=== PATIENT | male | born 1980 | race Caucasian/White ===

== ENCOUNTER 2021-09-25 07:17 | Outpatient (REF) | payer OTHER, SELFPAY ==
[2021-09-25 08:23] LABS: Estimated Average Glucose 108 mg/dL; Hemoglobin A1c % 5.4 %
[2021-09-25 08:38] LABS: Alanine Aminotransferase 16 U/L (0-40); Albumin Level 4.5 g/dL (3.5-5.0); Alkaline Phosphatase 57 U/L (39-117); Anion Gap 12 (12-20); Aspartate Amino Transferase 15 U/L (5-37); Bilirubin Total 0.5 mg/dL (0.0-1.0); Blood Urea Nitrogen 13 mg/dL (9-16); Calcium 9.2 mg/dL (8.4-10.2); Carbon Dioxide 26 mmol/L (22-29); Chloride 103 mmol/L (96-108); Cholesterol 231 mg/dL; Estimated Glomerular Filt Rate > 60; Glucose Random 100 mg/dL (60-115); HDL Cholesterol 34 mg/dL; LDL Cholesterol Calculated 183 mg/dl; Potassium 4.3 mmol/L (3.3-5.1); Sodium 137 mmol/L (135-145); Total Protein 6.8 g/dL (6.5-8.0); Triglycerides 71 mg/dL
[2021-09-25 08:59] LABS: TSH reflex Free T4 0.65 uIU/mL (0.32-4.0); Vitamin D 25-OH Total 23.5 ng/mL (>30)
[2021-09-25 09:09] LABS: Folate 17.6 ng/mL (> or = 4.0); Vitamin B12 351 pg/mL (200-900)
== END 2021-09-25 07:18 | disposition home or self-care (01) ==
LOC: HO.LAB 07:17
PROVIDERS: PCP Internal Medicine; Visit Provider Physician Assistant
DX: R73.01 Impaired fasting glucose (principal); E78.2 Mixed hyperlipidemia; F41.1 Generalized anxiety disorder
CPT/HCPCS: 36415; 80053; 80061; 82306; 82607; 82746; 83036; 84443

== ENCOUNTER 2022-07-30 07:12 | Outpatient (REF) | payer OTHER, SELFPAY ==
[2022-07-30 07:27] LABS: MANUAL DIFF FLAG NO
[2022-07-30 07:59] LABS: Basophils Absolute Auto 0.1 X10*3/uL (0.0-0.2); Eosinophils Absolute Auto 0.2 X10*3/uL (0.0-0.4); Eosinophils Percent Auto 3.6 % (0-4); Hematocrit 40.2 % (42.0-52.0); Hemoglobin 13.8 g/dl (14.0-18.0); Imm Gran Abs Auto 0.01 X10*3/uL (0.00-0.03); Imm Gran Pct Auto 0.2 % (0.0-0.4); Lymphocytes Absolute Auto 1.7 X10*3/uL (1.2-4.9); Lymphocytes Percent Auto 34.5 % (20-40); Mean Corpuscular HGB Conc 34.3 g/dl (31.0-36.0); Mean Corpuscular Hemoglobin 30.1 pg (27.0-33.0); Mean Corpuscular Volume 87.6 fL (80.0-98.0); Mean Platelet Volume 8.8 fL (9.4-12.4); Monocytes Absolute Auto 0.3 X10*3/uL (0.1-1.2); Monocytes Percent Auto 6.5 % (2-11); Neutrophils Absolute Auto 2.6 x10*3/uL (2.0-8.3); Neutrophils Percent Auto 54.2 % (45-73); Platelet Count 248 X10*3/uL (160-400); Red Blood Count 4.59 X10*6/uL (4.60-5.80); Red Cell Distribution Width 12.4 % (11.0-16.0); White Blood Count 4.8 X10*3/uL (4.8-10.8)
[2022-07-30 08:44] LABS: Alanine Aminotransferase 17 U/L (0-40); Albumin Level 4.4 g/dL (3.5-5.0); Alkaline Phosphatase 52 U/L (39-117); Anion Gap 12 (12-20); Aspartate Amino Transferase 15 U/L (5-37); Bilirubin Total 0.7 mg/dL (0.0-1.0); Blood Urea Nitrogen 15 mg/dL (9-16); Carbon Dioxide 27 mmol/L (22-29); Chloride 102 mmol/L (96-108); Cholesterol 235 mg/dL; Estimated Glomerular Filt Rate > 60; Glucose Random 92 mg/dL (60-115); HDL Cholesterol 35 mg/dL; LDL Cholesterol Calculated 181 mg/dl; Potassium 4.3 mmol/L (3.3-5.1); Sodium 137 mmol/L (135-145); Total Protein 6.8 g/dL (6.5-8.0); Triglycerides 99 mg/dL
[2022-07-30 09:01] LABS: Prostate Specific Antigen 0.79 ng/mL (<0.05-4.0)
== END 2022-07-30 07:13 | disposition home or self-care (01) ==
LOC: HO.LAB 07:12
PROVIDERS: PCP Internal Medicine; Visit Provider Physician Assistant
DX: Z00.00 Encounter for general adult medical examination without abnormal findings (principal); Z12.5 Encounter for screening for malignant neoplasm of prostate
CPT/HCPCS: 36415; 80053; 80061; 84153; 85025

== ENCOUNTER 2024-07-27 08:25 | Outpatient (REF) | payer OTHER, SELFPAY ==
--- OUTSIDE RECORDS SUMMARY | 2024-07-27 08:29 | XMS_ITS | Data Portability ---
Author Organization [facility] Service Address [address] [place] [address] Assessment No assessment recorded. Plan of Treatment Reminders Order Date Submit Date Provider Last Modified By Organization Details Last Modified Time Details Appointments ANNUAL EXAM 2024 03:30P M DAPHNE GARNETT Not available Not available Not available Lab CMP, serum or plasma 2023 024 [facility], [address] [place] [address], [id number], 08/14/2023 16:03:58 lipid panel, blood 2023 024 [facility], [address] [place] [address], [id number], 08/14/2023 16:03:58 CBC w/ auto diff 2023 024 [facility], [address] [place] [address], [id number], 08/14/2023 16:03:58 hemoglobi n A1c, QN, blood 2023 024 [facility], [address] [place] [address], [id number], 08/14/2023 16:03:58 PSA, serum or plasma 2023 024 [facility], [address] [place] [address], [id number], 08/14/2023 16:03:58 lipid panel, blood 2022 023 [facility], [address] [place] [address], [id number], 08/03/2022 15:50:33 CMP, serum or plasma 2021 [facility], [address] [place] [address], [id number], 08/01/2022 11:29:22 lipid panel, blood 2021 [facility], [address] [place] [address], [id number], 08/01/2022 11:29:22 CBC w/ auto diff 2021 [facility], [address] [place] [address], [id number], 08/01/2022 11:29:22 PSA, serum or plasma 2021 [facility], [address] [place] [address], [id number], 04/19/2022 16:40:24 hemoglobi n A1c, QN, blood 2021 [facility], [address] [place] [address], [id number], 09/27/2021 11:38:18 CMP, serum or plasma 2021 [facility], [address] [place] [address], [id number], 09/21/2021 16:15:27 lipid panel, serum 2021 [facility], [address] [place] [address], [id number], 09/21/2021 16:15:27 TSH + free T4, serum 2021 022 [facility], [address] [place] [address], [id number], 09/21/2021 16:15:27 vitamin D, 25-hydrox y, total, serum 2021 022 [facility], [address] [place] [address], [id number], 09/21/2021 16:15:27 vitamin B12 + folate, serum or blood 2021 022 [facility], [address] [place] [address], [id number], 09/21/2021 16:15:27 lipid panel, blood 2020 021 [facility], [address] [place] [address], [place], [id number], 08/17/2020 09:02:39 CMP, serum or plasma 2020 021 [facility], [address] [place] [address], [id number], 08/11/2020 08:15:19 CBC w/ auto diff 2020 021 [facility], [address] [place] [address], [place], [address], 08/10/2020 16:02:[address] referral 2023 024 [facility], [address] [facility], [place], [address], 08/15/2023 08:22:22 orthopedi c surgeon referral 2023 024 [facility], [address] [address], [place], [address], 08/15/2023 08:22:[address] referral 2022 023 [email or web address] 10 [facility], [address], [place], [address], 08/04/2022 12:36:39 urologist referral 2021 022 [facility], [address] [facility], [place], [address], 04/21/2022 09:04:14 Procedures None recorded. Surgeries None recorded. Imaging None recorded. Medication Orders sertralin e 100 mg tablet 2021 [facility][id number], [address] [place] [address], [place], [id number], 04/19/2022 16:34:59 sertralin e 50 mg tablet 2020 021 [facility][id number], [address], [place], [id number], 08/03/2022 15:24:54 Patient TargetsNo targets recorded. 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 Forrest ateral hearing loss decline in bilateral hearing over the last few years Referring Physician: Rochelle Cole, [facility], Encounter Date: 08/03/2022 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 Problems Name Problem SNOMED Code Status Onset Date Resolution Date Notes Provider Name and Address Organization Details Recorded Time Impaired fasting glycemia 449156406 [facility] 8 16:37:32 Hyperlipi demia 99282188 Active 2017 [facility] 8 16:37:38 Anxiety 22333469 Active 2017 Asya AUNDREA [address] [place], [phone], [facility] 8 16:03:30 Bilateral hearing loss 13226631 Active 2022 DAPHNE GARNETT [address] [place] [address], [id number], [facility] 3 15:36:39 Streptoco ccal sore throat 25419082 Active 2022 DAPHNE GARNETT [address] [place] [address], [phone], [facility] 3 14:57:06 Pain in left foot 198380518034 107 Active 2023 DAPHNE GARNETT [address] [place] [address], [phone], [facility] 4 16:05:49 Acute bronchiti s 77759698 Active 2023 DAPHNE GARNETT [address] [place] [address], [phone], [facility] 4 13:37:12 Problem Notes None recorded. Medical Equipment None Reported. Allergies No known drug allergies Medications Name Sig Start Date Stop Date Status Note LastModified by Organization Details LastModified Time azithromyci n 250 mg tablet TAKE 2 TABLETS (500 MG) BY ORAL ROUTE ONCE DAILY FOR 1 DAY THEN 1 TABLET (250 MG) BY ORAL ROUTE ONCE DAILY FOR 4 DAYS active Not Available Not Available No t Available sertraline 100 mg tablet take 1 tablet by mouth once daily active Not Available Not Available No t Available amoxicillin 875 mg tablet TAKE 1 TABLET BY MOUTH EVERY 12 HOURS FOR 7 DAYS 08/13 completed Not Available Not Available Not Available sertraline 25 mg tablet TAKE 1 TABLET BY MOUTH EVERY DAY active Not Available Not Available No t Available Drysol Dab-O-Matic 20 % topical solution APPLY TOPICALLY TO THE AFFECTED AREA AT BEDTIME FOR EXCESSIVE SWEATING 08/03 completed Not Available Not Available Not Available halobetasol propionate 0.05 % topical cream APPLY A THIN LAYER TO THE AFFECTED AREA(S) BY TOPICAL ROUTE ONCE DAILY DO NOT EXCEED 50 GRAMS PER WEEK OR 2 WEEKS DURATION 02/13 completed Not Available Not Available Not Available diazepam 10 mg tablet TAKE 1 TABLET BY MOUTH 1 HOUR PRIOR TO PROCEDURE 08/03 completed Not Available Not Available Not Available methylpredn isolone 4 mg tablets in a dose pack FOLLOW PACKAGE DIRECTION S active Not Available Not Available No t Available sertraline 50 mg tablet TAKE 1 TABLET BY MOUTH EVERY DAY 08/03 completed Not Available Not Available Not Available amoxicillin 875 mg-potassiu m clavulanate 125 mg tablet 04/03 completed Not Available Not Available Not Available Vitamin D3 take one tablet qd active Not Available Not Available No t Available multivitami n take one tablet qd active Not Available Not Available No t Available Vitals Date Recorded Body height Body mass index (BMI) Body weight Heart rate Oxygen saturation Oxygen saturation in Arterial blood by Pulse oximetry Systolic blood pressure Diastolic blood pressure Provider Name and Address Organization Details Last Updated DateTime 1 182.88 cm 26.2 kg/m2 00751.3 3 g 62 /min 97 % 97 % 128 mm[Hg] 78 mm[Hg] Valentina Gilman [facility] 1 15:49:38 Date Recorded Body height Body mass index (BMI) Body weight Heart rate Oxygen saturation Oxygen saturation in Arterial blood by Pulse oximetry Systolic blood pressure Diastolic blood pressure Provider Name and Address Organization Details Last Updated DateTime 2 182.88 cm 26.8 kg/m2 03346.5 7 g 70 /min 98 % 98 % 138 mm[Hg] 80 mm[Hg] Sury Cardona [facility] 2 16:01:07 Date Recorded Body height Heart rate Oxygen saturation Oxygen saturation in Arterial blood by Pulse oximetry Systolic blood pressure Diastolic blood pressure Provider Name and Address Organization Details Last Updated DateTime 2 182.88 cm 76 /min 96 % 96 % 138 mm[Hg] 82 mm[Hg] Sophia Patellevon [facility] 2 16:17:11 Date Recorded Body height Body mass index (BMI) Body weight Oxygen saturation Oxygen saturation in Arterial blood by Pulse oximetry Heart rate Systolic blood pressure Diastolic blood pressure Provider Name and Address Organization Details Last Updated DateTime 3 182.88 cm 25.9 kg/m2 75312.5 g 97 % 97 % 63 /min 110 mm[Hg] 60 mm[Hg] Kaila Pep [facility] 3 15:25:54 Date Recorded Body height Body mass index (BMI) Body weight Heart rate Oxygen saturation Oxygen saturation in Arterial blood by Pulse oximetry Systolic blood pressure Diastolic blood pressure Provider Name and Address Organization Details Last Updated DateTime 4 182.88 cm 26.3 kg/m2 79373.9 2 g 73 /min 98 % 98 % 147 mm[Hg] 70 mm[Hg] Mandyrobert Bealmond [facility] 4 15:49:00 Social History Question Answer Notes LastModified by Organizat ion Details LastModified Time Tobacco Smoking Status Former Smoker Not Available [facility] 03/24/2020 03:36:24 What Was The Date Of Your Most Recent Tobacco Screening? 08/03/2022 [email or web address] Information not available 08/03/2022 How Many Years Have You Smoked Tobacco? 10 [id number] Information not available 03/24/2020 Do You Or Have You Ever Used Any Other Forms Of Tobacco Or Nicotine? No [email or web address] Information not available 04/19/2022 Sex: Unknown Functional Status None recorded. Mental Status None recorded. Family History Relationship Description Onset Age of this Age Resolved Age Notes LastModified by Organization Details LastModified Time Paternal Aunt Malignant neoplasm of female breast [email or web address] Not available 16:07:16 Mother Hypercholest [email or web address] Not available 01/05 16:03:20 Medical History No medical history recorded. Immunizations Vaccine Type Date Status Note Provider Nam e and Address Organization Details Recorded Time influenza, unspecified formulation 2 completed Sophia grajeda, [facility] 04/19/2022 16:15:57 COVID-19, mRNA, LNP-S, PF, 30 mcg/0.3 mL dose, brionna-sucrose 1 completed Kaila grajeda, [facility] 08/03/2022 08:31:51 COVID-19, mRNA, LNP-S, PF, 30 mcg/0.3 mL dose, brionna-sucrose 1 completed Kaila grajeda, [facility] 08/03/2022 08:31:57 COVID-19, mRNA, LNP-S, PF, 30 mcg/0.3 mL dose, brionna-sucrose 1 completed Kaila grajeda, [facility] 08/03/2022 08:32:17 Tdap 5 completed AUNDREA aRndall [address] [place] [address], [phone], [facility] 01/05/2018 16:05:20 Past Encounters Encounter ID Performer Location Encounter Start Date Encounter Closed Date Diagnosis/Indication Diagnosis SNOMED-CT Code Diagnosis ICD10 Code Diagnosis Note [id number] AUNDREA Randall [facility] [address] [place] [address],[place] [address] 01/05/2018 15:49:49 01/05/2018 16:22:13 Adult health examination 397413611 Z00.00 will see derm for skin check Generalize d anxiety disorder 02928741 F41.1 on sertraline with good effect Hyperlipidemia 43015386 E78.5 has been watching diet has lost some weight continue healthy diet to avoid increasing cholestero l [id number] Riley Newman [facility] [address] [place] [address],[place] [address] 04/08/2019 16:12:36 04/08/2019 16:49:59 Anxiety 56304127 F41.9 as noted he is doing great so we will lower his dose to 50 mg daily by cutting his dose in half but tapering on a qod 50-100-50- 100 trial he will let me know Hyperlipidemia 03709309 E78.5 will check at cpe Pain in left knee 999694 2134 69020 M25.562 [id number] Riley Newman, [facility] [address] [facility] [address] [address] 05/17/2019 14:22:57 05/17/2019 14:59:07 Adult health examination 516584245 Z00.00 Normal physical exam without concerns Anxiety 60190755 F41.9 as noted he is doing great so we will lower his dose to 50 mg daily by cutting his dose in half but tapering on a qod 50-100-50- 100 trial he will let me know Will cut dose to 50 mg/day Nummular eczema 27827686 L30.0 l [place] with [place]aso l [id number] DAPHNE GARNETT [facility] [address] [facility] [address] 02/14/2020 09:58:16 02/14/2020 11:01:17 Anxiety 96588944 F41.9 will change dosage change and see if improvemen t with anxiety [id number] DAPHNE GARNETT [facility] [address] [facility] [address] [address] 08/10/2020 15:42:23 08/10/2020 16:05:44 Active or passive immunization 975047228 Z23 up to date Adult heal th examination 989176647 Z00.00 BP excellent needs BW checked again Anxiety 50685511 F41.9 refill Screening for cardiovascular system disease 709659575 Z13.6 fu with BW results [id number] DAPHNE GARNETT [facility] [address] [facility] [address] [address] 09/21/2021 15:55:16 09/22/2021 16:26:33 Impaired fasting glycemia 437358067 R73.01 will fu with testing for patient, is due for testing Hyperlipidemia 38843768 E78.2 will recheck labs Anxiety 41782784 F41.1 will fu with testing to see if anything causing increased anxiety symptomswi ll hold on dose increase of sertraline for now, on 75 mg right now [id number] DAPHNE GARNETT [facility] [address] [facility] [address] [address] 04/19/2022 16:06:13 04/20/2022 08:22:25 Anxiety 91562384 F41.1 will increase to the 100 mg Adult heal th examination 347539058 Z00.00 BP excellent needs BW checked again Vasectomy requested 1839 91319 Z30.2 will fu with urologist [id number] DAPHNE GARNETT [facility] [address] [facility] [address] [address] 08/03/2022 15:20:45 08/03/2022 17:05:40 Active or passive immunization 727295919 Z23 up to date Adult heal th examination 938936487 Z00.00 BP excellent Bilateral hearing loss 60748434 H91.93 will set up for eval [id number] DAPHNE GARNETT [facility] [address] [facility] [address] [address] 08/14/2023 15:43:38 08/14/2023 16:44:05 Adult health examination 912229628 Z00.00 BP excellent Bilateral hearing loss 93481235 H91.93 will set up for eval Impaired f asting glycemia 768739125 R73.01 will f/u with testing for patient, is due for testing Pain in left foot 741520 8387 21062 M79.672 will set up with ortho Health Concerns Section Related Observation LastModified by Organization Detai ls LastModified Time None Recorded Concern Status LastModified by Organization Details LastModified Time None Recorded Advance Directives Directive None Recorded Payers Encounter Date Sequence Insurance Name Policy Number Policy Mcgraw Covered Member ID Mcgraw Member ID Guarantor Name 08/10/2020 1 [employer] [place] [id number] Brien Talley [id number] Brien Talley 09/21/2021 1 [employer] [place] [id number] Brien Talley [id number] Brien Talley 04/19/2022 1 [employer] [place] [id number] Brien Talley [id number] 286 Brien Talley 08/03/2022 1 [employer] [place] [id number] Brien Campos [place] [id number] 286 Brien Campos [place] 08/14/2023 1 [employer] [place] [id number] Brien Campos [place] [id number] 286 Brien Campos [employer] Notes Date Note Type Note Provider Name a nd Address Organization Details Recorded Time 1 text/html Annual WellnessReported bypatient.Diet and Nutrition:healthy diet; discussed vitamin and supplement use; discussed portion control; discussed maintaining calcium balance; discussed diet improvement Fracture Risk:no history of fractures; no recent explained fracture; no sudden unexplained fractures; no previous musculoskeletal injuries Physical Activity:exercises on a regular basis; recent increase in physical activity; discussed weightbearing activities; discussed exercise habits Additional Lifestyle Factors:no tobacco use; drinks alcohol (mild-moderate); smokes pot Depression Risk:never feels sad, empty, or tearful; no loss of interest in activities; no significant changes in weight; no sleep disturbances or insomnia; no agitation; no loss of energy; no feelings of worthlessness or guilt; no thoughts of suicide; no history of depression; no history of mood disorders Hearing:no loss of hearing Vision:no vision problems DAPHNE GARNETT [address] [place] [address], [phone], [facility] 08/10/2020 16:01:33 2 text/html medication f/u IFG: the patient did not get his lab workwill re-order HLD: needs recheck anxiety: discussed fu lab to make sure nothing is contributing before bumping up dosage of his sertraline foot pain, tops of the feet, will fu with corrective shoes and supports due to high arch right eye pain and headachessupposed to wear glasses, tends to strain his eyes a lot due to his workcan lead to headacheswill try glasses DAPHNE GARNETT [address] [place], [address], [facility] 09/21/2021 16:20:53 2 text/html f/u anxiety anxiety: went up to 100 mglikes how it is workingagreed to give him the correct doseknows to call if he wants to come back downdoing really well needs a CPE and lab work dulce also draw a PSA as well since he is over 40 years old would like to have vasectomy donereferred to urology DAPHNE GARNETT [address] [place], [address], [facility] 04/19/2022 16:46:13 3 text/html Annual WellnessReported bypatient.Diet and Nutrition:discussed vitamin and supplement use; discussed portion control; discussed maintaining calcium balance; discussed diet improvement; needs to work on diet and exercise plan Fracture Risk:no history of fractures; no recent explained fracture; no sudden unexplained fractures; no previous musculoskeletal injuries Physical Activity:exercises on a regular basis; recent increase in physical activity; good physical condition; discussed weightbearing activities; discussed exercise habits; needs to increase his level of activity Additional Lifestyle Factors:no tobacco use; drinks alcohol (mild-moderate); marijuana (occasional) Depression Risk:never feels sad, empty, or tearful; no loss of interest in activities; no significant changes in weight; no sleep disturbances or insomnia; no agitation; no loss of energy; no feelings of worthlessness or guilt; no thoughts of suicide; no history of depression; no history of mood disorders Hearing:loss of hearing: in both ears Vision:no vision problems had his vasectomy which went wellstill needs to get his semenalysis done DAPHNE GANRETT [address] [place], [address], [facility] 08/03/2022 15:45:10 4 text/html Annual WellnessReported bypatient.Diet and Nutrition:discussed vitamin and supplement use; discussed portion control; discussed maintaining calcium balance; discussed diet improvement; needs to work on diet and exercise plan Fracture Risk:no history of fractures; no recent explained fracture; no sudden unexplained fractures; no previous musculoskeletal injuries Physical Activity:exercises on a regular basis; recent increase in physical activity; good physical condition; discussed weightbearing activities; discussed exercise habits; needs to increase his level of activity Additional Lifestyle Factors:no tobacco use; drinks alcohol (mild-moderate); marijuana (occasional) Depression Risk:never feels sad, empty, or tearful; no loss of interest in activities; no significant changes in weight; no sleep disturbances or insomnia; no agitation; no loss of energy; no feelings of worthlessness or guilt; no thoughts of suicide; no history of depression; no history of mood disorders Hearing:loss of hearing: in both ears Vision:no vision problems had his vasectomy which went wellstill needs to get his semenalysis done DAPHNE GARNETT [address] [place] [address], [phone], [facility] 08/14/2023 16:11:31
[2024-07-27 09:13] LABS: MANUAL DIFF FLAG NO
[2024-07-27 09:50] LABS: Estimated Average Glucose 105 mg/dL; Hemoglobin A1c % 5.3 % (<6.0)
[2024-07-27 10:03] LABS: Basophils Percent Auto 0.7 % (0-2); Eosinophils Absolute Auto 0.2 X10*3/uL (0.0-0.4); Hematocrit 41.1 % (42.0-52.0); Imm Gran Abs Auto 0.02 X10*3/uL (0.00-0.03); Imm Gran Pct Auto 0.4 % (0.0-0.4); Lymphocytes Absolute Auto 1.7 X10*3/uL (1.2-4.9); Lymphocytes Percent Auto 29.4 % (20-40); Mean Corpuscular HGB Conc 34.1 g/dl (31.0-36.0); Mean Corpuscular Hemoglobin 29.9 pg (27.0-33.0); Mean Corpuscular Volume 87.8 fL (80.0-98.0); Monocytes Absolute Auto 0.4 X10*3/uL (0.1-1.2); Monocytes Percent Auto 6.1 % (2-11); Neutrophils Absolute Auto 3.5 x10*3/uL (2.0-8.3); Neutrophils Percent Auto 60.4 % (45-73); Platelet Count 249 X10*3/uL (160-400); Red Blood Count 4.68 X10*6/uL (4.60-5.80); Red Cell Distribution Width 11.9 % (11.0-16.0); White Blood Count 5.7 X10*3/uL (4.8-10.8)
[2024-07-27 10:24] LABS: Alanine Aminotransferase 21 U/L (0-40); Albumin Level 4.5 g/dL (3.5-5.0); Alkaline Phosphatase 53 U/L (39-117); Anion Gap 10 (12-20); Aspartate Amino Transferase 17 U/L (5-37); Bilirubin Total 0.5 mg/dL (0.0-1.0); Blood Urea Nitrogen 16 mg/dL (9-16); Calcium 9.2 mg/dL (8.4-10.2); Carbon Dioxide 27 mmol/L (22-29); Chloride 105 mmol/L (96-108); Cholesterol 215 mg/dL (<200); Estimated Glomerular Filt Rate > 60; Glucose Random 94 mg/dL (60-115); HDL Cholesterol 35 mg/dL (>40); LDL Cholesterol Calculated 150 mg/dL (<100); Potassium 4.2 mmol/L (3.3-5.1); Sodium 138 mmol/L (135-145); Total Protein 7.4 g/dL (6.5-8.0); Triglycerides 152 mg/dL (<150)
[2024-07-27 10:38] LABS: Prostate Specific Antigen 0.88 ng/mL (<0.05-4.0)
== END 2024-07-27 08:26 | disposition home or self-care (01) ==
LOC: HO.LAB 08:25
PROVIDERS: PCP Internal Medicine; Visit Provider Physician Assistant
DX: Z00.00 Encounter for general adult medical examination without abnormal findings (principal); Z12.5 Encounter for screening for malignant neoplasm of prostate; Z13.1 Encounter for screening for diabetes mellitus; Z13.6 Encounter for screening for cardiovascular disorders
CPT/HCPCS: 36415; 80053; 80061; 83036; 84153; 85025